=== PATIENT | female | born 1990 | race Caucasian/White ===

== ENCOUNTER 2024-03-01 17:27 | Outpatient (CLI) | payer OTHER, SELFPAY ==
--- OUTSIDE RECORDS SUMMARY | 2024-03-01 18:11 | XMS_ITS | Clinical Summary ---
Author Organization [facility] Address [place], [place] [address] Care Team Providers Care Superintendent Compressor Stations Name Role Phone Jonelle Morris MD Unavailable [phone] Luz Macias NP Unavailable Renetta Cross Primary Care Provider [phone] Allergies Active Allergy Reactions Criticality Noted Date Comments Hydrocodone Bitartrate Anaphylaxis High 05/05/2022 Hydrocodone-Acetaminophen Anaphylaxis 2 Vs amoxicillin as etiology. T#3 ok. Medications Medication Sig Dispensed Refills Start Date End Date Status calcium carbonate (Tums) 200 mg calcium (500 mg) chewable tablet Chew by mouth. 05/05/2022 Active fluticasone (50 mcg per actuation) nasal solution (FLONASE)Indications:H ayfever Inhale 2 Sprays to both nostrils two times daily. 48 g 1 10/28/2023 Active albuterol HFA (PRO-AIR; VENTOLIN; PROVENTIL) 90 mcg/actuation inhalerIndications:Mil d intermittent asthma without complication Inhale 2 Puffs by mouth every 4 hours if needed for Shortness Of Breath or Wheezing. 1 Each 5 01/04/2024 Active medroxyPROGESTERone (Provera) 10 mg tabletIndications:PCOS (polycystic ovarian syndrome) take 1 tablet (10 mg) by oral route once daily for 10 days as directed every 3 months without menses. 30 Tablet 5 01/04/2024 Active levothyroxine (SYNTHROID) 200 mcg tabletIndications:Acqu ired hypothyroidism Take 1 Tablet (200 mcg) by mouth before breakfast. 90 Tablet 3 01/06/2024 Active Active Problems Problem Noted Date Diagnosed Date Iron deficiency anemia 11/25/2021 distress affecting care 08/12/2019 S/P emergency 08/12/2019 Screening for condition--covid, asymptomatic, lo w risk 08/10/2019 Supervision of high risk , antepartum 0 08/01/2019 Gestational hypertension, third trimester 2019 Supervision of normal first 12/20/2018 Celiac disease 07/21/2017 Overview (07/21/2017): EGD 06/2017 celiac disease, Esposito 2 VESTA 03/26/2017 AHI/RDI:15 04/14/2017 VESTA (obstructive sleep apnea) 02/27/2017 Acquired hypothyroidism 03/08/2015 Nevus 10/25/2014 Screening exam for skin cancer 10/25/2014 S/P cholecystectomy 05/10/2014 Obesity 04/24/2014 Dyshidrotic hand dermatitis 04/29/2013 Fatty liver 01/08/2012 Hypothyroidism 01/08/2012 Vitamin D deficiency 01/08/2012 Anovulatory amenorrhea 03/11/2011 Mixed hyperlipidemia 02/13/2009 PCOS (polycystic ovarian syndrome) 12/26/2008 Mild intermittent asthma 06/10/2006 Anemia Estimated Date of Delivery Comme nts Yes 10/14/2024 Based on last me nstrual period of 01/08/2024 (Exact Date), Irregular periods- PCOS- very light cycle which was very unusual Resolved Problems Problem Noted Date Diagnosed Date Resolved Date Mixed hyperlipidemia 02/13/2009 009 Encounters Date Type Department Care Team Description 02/21/2024 Travel 02/20/2024 7:10 PM PARAMEDIC SUPERVISOR - 02/20/2024 10:23 PM PARAMEDIC SUPERVISOR Emergency [facility] [address] [facility] [place] [id number] Demetria Pedro PA Intrauterine (Primary Dx); Abdominal cramping; Elevated blood pressure affecting in first trimester, antepartum Discharge Disposition: Home Self Care 02/20/2024 Travel 02/20/2024 Nurse Triage [facility] [address] [place] [address] Renetta Cross PA Abdominal Pain; Urinary Problem 02/19/2024 2:20 PM PARAMEDIC SUPERVISOR OB Encounter [facility] [address] [place] [address] Education (RN OB intake) 02/19/2024 Travel 01/28/2024 11:30 AM CDT Office Visit [facility] [address] [place] [address] Britt Hilario PA Gi Problem 01/28/2024 Travel 01/15/2024 1:25 PM CDT Office Visit [facility] [address] [place] [phone] Eduardo Humphries PA Ear Problem (Onset: 01/09/24) 01/15/2024 Travel 01/04/2024 9:10 AM CDT Office Visit [facility] [address] [place] [address] Renetta Cross PA Establish Care (Just needs new provider to manage meds) 01/03/2024 Travel 12/21/2023 12:10 PM CDT Office Visit [facility] [address] [place] [phone] Aundrea Mccracken, [place] Bladder Infection (pressure) 12/21/2023 Travel from Last 3 Months Immunizations Name Administration Dates Next Due AMB INFLUENZA, IIV4 (AGE=>6M OS) MDV (Flu Clinic Only) 12/14/2018 AMB Influenza, IIV4 PF (=>6 mos Flulaval,Fluzone Fluarix)(Flu Clinic Only) 12/09/2018 COVID-19 VACCINE SPIKEVAX (M ODERNA 50MCG/0.5ML) 12YO+ PFS 04/06/2023 COVID-19 vaccine (Graphenics-Bio NTech 30mcg/0.3mL) 12YO+ BIVALENT PF, MDV 02/17/2022 COVID-19 vaccine (Pfizer-Bio NTech 30mcg/0.3mL) PF, MDV 06/27/2020,06/06/2020 Human Papilloma Virus Vaccine 02/11/2013, 012,02/13/2009 Influenza A (H1N1), Inactivated 02/14/2009 Influenza, IIV3 (Age >=3 years) 02/11/2013,12/30 Influenza, IIV4 04/06/2023, 2,03/04/2021,2019,02/24/2018,02/03/2017,12/20/2015,1 05/09/2014,01/31/2014 Influenza,CCIIV4 PRESERV FREE 12/14/2018 Pneumococcal Conj 20-valent (Prevnar 20) 04/06/2023 Pneumococcal Poly,23-Valent (Pneumovax) 02/13/2009 Tdap 06/06/2019,12/31/2011 Family History Medical History Relation Name Comments Diabetes Father Type 1 Thyroid Disease Father Uterine cancer Maternal Aunt Cancer-colon Maternal Grandfather Anxiety disorder Maternal Grandmother Asthma Maternal Grandmother COPD Maternal Grandmother Lung cancer Maternal Grandmother Lung cancer Maternal Uncle No Known Problems Mother Celiac disease Paternal Aunt Alcohol/Drug Paternal Grandfather Lung cancer Paternal Grandfather Cancer-breast Paternal Grandmother Good Health Son Relation Name Status Comments Father Alive Maternal Aunt Alive Maternal Grandfather Maternal Grandmother Alive Maternal Uncle Mother Alive Paternal Aunt Alive Paternal Grandfather Paternal Grandmother Son Alive Social History Tobacco Use Types Packs/Day Years Used Date Smoking Tobacco: Never Smokeless Tobacco: Never Tobacco Cessation:Counseling Given: Yes Alcohol Use Standard Drinks/Week Comments Never 0 (1 standard drink = 0.6 oz pur e alcohol) Humiliation, Afraid, Rape, and Kick questionnair e Answer Date Recorded Fear of Current or Ex-Partner No Emotionally Abused No 12/20/2018 Physically Abused No 12/20/2018 Sexually Abused No 12/20/2018 PHQ-2 Answer Date Recorded PHQ-2 TOTAL SCORE 0 04/20/2023 [facility] - Occupational Stress Questionnaire Answer Date Recorded Feeling of Stress Not at all 12/20/2018 Exercise Vital Sign Answer Date Recorde d Days of Exercise per Week 5 days 2018 Minutes of Exercise per Session 90 min 12/20/2018 Social Connections Answer Date Recorded Do you often feel lonely or isolated from those around you? 0 01/03/2024 Financial Resource Strain Answer Date R ecorded Difficulty of Paying Living Expenses 3 01/03/2024 Difficulty of Paying Living Expenses Not on file 01/03/2024 Food Insecurity Answer Date Recorded Do you worry your food will run out before you are able to buy more? 1 01/03/2024 Transportation Needs Answer Date Record ed Does lack of transportation keep you from medica l appointments? 1 01/03/2024 Does lack of transportation keep you from work, meetings or getting things that you need? 1 01/03/2024 Housing Stability Answer Date Recorded What is your housing situation today? 1 01/03/2024 Education Answer Date Recorded What is the highest level of school you have completed or the highest degree you have received? Associate degree: academic program 12/20/2018 Estimated Date of Delivery Comme nts Yes 10/14/2024 Based on last me nstrual period of 01/08/2024 (Exact Date), Irregular periods- PCOS- very light cycle which was very unusual Sex and Gender Information Value Date Recorded Sex Assigned at Not on file Gender Identity Not on file Sexual Orientation Not on file Obstetrics History Para Term AB IAB SAB Ectopic Multiple Livin g Live Births 3 1 1 1 1 1 1 Date Outcome GA Total Labor Labor/2nd/3rd Weight Sex Type Anes PTL No A1 A5 Name Clin 2019 Term 37w 3d 0h 01m 3.91 kg (8 lb 10 oz) M CS-LT ranv Genera l N Livin g LORETTA CABRALES,DEEDEE nova Complications: Intolera nce,Failure to Progress in Second Stage,Dysfunctional Labor,Sinusoidal pattern of baseline heart rate Delivery Location:[facility] 3 SAB Current Summary Episode Dates Number of Fetuses Estimated Date of Delivery 02/19/2024 - Present (03/01/2024) 10/14/2024 (set by Marisol Seals, RN on 02/19/2024 based on Last Menstrual Period on 01/08/2024 (Exact Date)) Dating Summary Based On YUSEF GA Diff Last Menstrual Period on 01/08/2024 (Exact Date) 10/14/2024 Working Comment:Irregular periods- P COS- very light cycle which was very unusual Vitals Pregravid Weight Height TWG (As of 03/01/2024) Pregrav id BMI 1.549 m (5' 1) Date GA Fund Present FHR Mvmt BP Weight Edema Alb Glu Ket Dil/ Eff/Sta 4 6w1d Inpatient data not displayed here. See encounter summary. Notes Progress Notes - OB Encounte r - 02/19/2024 - GA:6w0d 02/19/2024 - 6w0d - Marisol Seals RN SUBJECTIVE: Mandi Walter is a 33 y.o. female, , who presents for confirmation and ob education. Patient presents to the clinic alone. Had positive test at home. This was Planned, Desired. Patient was not on contraception. Date Reliability: definite YUSEF based on LMP: Estimated Date of Delivery: 10/14/24 Current symptoms include: Nausea:Yes Vomiting:No Breast tenderness:Yes - mild Vaginal bleeding:No Vaginal discharge:No Pelvic cramping:Yes - mild Fatigue:Yes Previous Delivery Type: Occupation of patient: general engineering teacher Name of Partner or Father of baby: Shimon. MENSTRUAL HISTORY: Patient's last menstrual period was 01/08/2024 (exact date).: Cycle Regularity: irregular - last period was unusually light Past Medical History: . Date Anemia Awareness under anesthesia Gastritis 02/03/2022 GBS (group B Streptococcus carrier), +RV culture, currently Hemorrhoids 02/03/2022 Hx of preeclampsia, prior , currently Hypothyroidism 2008 Infertility, female Migraine headache Mild intermittent asthma rare, no hospitalizations Mixed hyperlipidemia 2008 Morbid obesity with BMI of 40.0-44.9, adult (HC) seen by Dr. Jean 03/2019 for VESTA (obstructive sleep apnea) 02/2017 PCOS (polycystic ovarian syndrome) Prior complicated by PIH, antepartum, unspecified trimester Varicella in childhood OB History Para Term AB Living 3 1 1 1 1 SAB IAB Ectopic Multiple Live Births 1 1 # Outcome Date GA Lbr Betito/2nd Weight Sex Type Anes PTL Lv 3 Current 2 SAB 12/2022 1 Term 08/11/19 37w3d 3.91 kg (8 lb 10 oz) M CS-LTranv GENERAL N NO Complications: Intolerance, Failure to Progress in Second Stage, Dysfunctional Labor, Sinusoidal pattern of baseline heart rate 5P'S SUBSTANCE ABUSE SCREEN FOR ALCOHOL, DRUGS AND TOBACCO: Did any of your parents have a problem with using alcohol or drugs? No Do any of your friends (peers) have problems with drug or alcohol use? No Does your partner have a problem with drug or alcohol use? No Before you knew you were , how often did you drink beer, wine, wine coolers or liquor or use any kind of drug? Not at all In the past month, how often did you drink beer, wine, wine coolers or liquor or use any kind of drug? Not at all How much did you smoke, vape or use tobacco or nicotine in any form before you knew you were ? Don't Smoke, Vape or use Tobacco Genetic Screening Genetic Screening/Teratology Counseling- Includes patient, baby's father, or anyone in either family with: Patient's age 35 years or older as of estimated date of delivery: Yes Thalassemia (Occitan, Bengali, Mediterranean, or background): MCV less than 80: No Neural tube defect (Meningomyelocele, Spina bifida, or Anencephaly): No Congenital heart defect: No Down syndrome: No Scotty-Sachs (Ashkenazi Temple, Cajun, Citizen Of [place]): No Abiola disease (Ashkenazi Temple): No Familial dysautonomia (Ashkenazi Temple): No Sickle cell disease or trait (): No Hemophilia or other blood disorders: No Muscular dystrophy: No Cystic fibrosis: No Lowndes's chorea: No Intellectual disability and/or autism: No Other inherited genetic or chromosomal disorder: No Maternal metabolic disorder (eg. Type 1 diabetes, PKU): Yes (Comment: maternal father) Patient or baby's father had child with defects not listed above: No Recurrent loss, or a stillbirth: No Medications (including supplements, vitamins, herbs, or OTC drugs)/illicit/recreational drugs/alcohol since last menstrual period: Yes If yes, agent(s) and strength/dosage: prednisone and amoxicillin CURRENT MEDICATIONS: Current Outpatient Medications Medication Sig albuterol HFA (PRO-AIR; VENTOLIN; PROVENTIL) 90 mcg/actuation inhaler Inhale 2 Puffs by mouth every 4 hours if needed for Shortness Of Breath or Wheezing. calcium carbonate (Tums) 200 mg calcium (500 mg) chewable tablet Chew by mouth. fluticasone (50 mcg per actuation) nasal solution (FLONASE) Inhale 2 Sprays to both nostrils two times daily. levothyroxine (SYNTHROID) 200 mcg tablet Take 1 Tablet (200 mcg) by mouth before breakfast. medroxyPROGESTERone (Provera) 10 mg tablet take 1 tablet (10 mg) by oral route once daily for 10 days as directed every 3 months without menses. No current facility-administered medications for this visit. Medications have been reviewed by me and are current to the best of my knowledge and ability. ALLERGIES: Hydrocodone bitartrate and Vicodin [hydrocodone-acetaminophen] OBJECTIVE: LMP 01/08/2024 (Exact Date) Comment: Irregular periods- PCOS- very light cycle which was very unusual ,URINE (no units) Date Value 12/21/2023 Negative ASSESSMENT/PLAN: No diagnosis found. EDUCATION/PATIENT INSTRUCTIONS - Advised patient to start/continue vitamin. - Discussed risk of using alcohol, tobacco, other drugs in . - Discussed healthy lifestyle in . - Provided copy of [facility]nings book and book inserts, discussed [id number] medications, and follow up. - Encouraged patient to call clinic at [phone] with any vaginal bleeding, fluid leaking from vagina, severe abdominal pain, nausea with severe vomiting, fever higher than 100.4F, painful urination, headache not relieved by Tylenol, or other concerns - labs completed with today's visit. - Patient informed to schedule 1st trimester dating ultrasound between 7-10 weeks. - Initial OB appointment with FP/OB scheduled. PHQ-9, and COVID-19 vaccine discussion to be completed at this visit. Future Appointments Date Time Provider Department Center 03/07/2024 1:10 PM Ren[facility] Cross [facility] 03/28/2024 8:45 AM Jenna Fountain MD [facility] Marisol Seals RN .................... 02/19/2024 3:14 PM MEDIC SUPERVISOR Last Filed Vital Signs Vital Sign Reading Time Taken Comments Blood Pressure 157/88 02/20/2024 9:32 PM PARAMEDIC SUPERVISOR Pulse 86 02/20/2024 9:32 PM PARAMEDIC SUPERVISOR Temperature 36.8 C (98.2 F) 02/20/2024 7:16 PM PARAMEDIC SUPERVISOR Respiratory Rate 22 02/20/2024 7:16 PM PARAMEDIC SUPERVISOR Oxygen Saturation 100% 02/20/2024 9:32 PM PARAMEDIC SUPERVISOR Inhaled Oxygen Concentration - - Weight 128.8 kg (284 lb) 02/20/2024 7:16 PM PARAMEDIC SUPERVISOR Height 154.9 cm (5' 1) 02/20/2024 7:16 PM PARAMEDIC SUPERVISOR Body Mass Index 53.66 02/20/2024 7:16 PM PARAMEDIC SUPERVISOR Plan of Treatment Health Maintenance Due Date Last Done Comments COVID-19 vaccine series ( season) 2023 04/06/2023, 02/17/2022, 01/07/2021, Additional history exists Influenza for age 9-49 11/29/2023 , 02/17/2022, 03/04/2021, Additional history exists BMI (ht and wt on same day) for age 18+ 04/06/2024 04/06/2023, 10/21/2021, 08/13/2020, Additional history exists Depression screening for age 12+ 04/20/2024 04/20/2023, 04/07/2023, 04/06/2023, Additional history exists Pap test for age 21-65 08/13/2025 , 08/13/2020, 02/24/2018 Tetanus booster 06/05/2029 06/06/2019, 12/31/2011 Tdap Completed 06/06/2019, 12/31/2011 Pneumococcal series for age 6-64 Aged Out 04/06/2023, 02/13/2009 No longer eligibl e based on patient's age to complete this topic HIV for age 15-65 Completed 02/19/2024, , 09/08/2017 Hepatitis C screening for age 18-79 Completed 02/19/2024, 12/23/2018, 09/08/2017 RSV vaccine for adults or (No Doses Required) Completed Procedures Procedure Name Priority Date/Time Associated Diagnosis Comments US OB 1ST TRI SINGLE TA AND TV STAT 02/20/2024 10:08 PM PARAMEDIC SUPERVISOR UA W/ SEDIMENT EXAM REFLEXED PER CRITERIA STAT 02/20/2024 7:30 PM PARAMEDIC SUPERVISOR HCG BETA QUANT, STAT 02/20/2024 7:23 PM PARAMEDIC SUPERVISOR PROTEIN/CREAT RATIO,URINE Routine 02/19/2024 4:05 PM PARAMEDIC SUPERVISOR Hx of preeclampsia, prior , currently AST (SGOT) Routine 02/19/2024 4:05 PM PARAMEDIC SUPERVISOR Encounter for supervision of other normal in first trimester Hx of preeclampsia, prior , currently ALT (SGPT) Routine 02/19/2024 4:05 PM PARAMEDIC SUPERVISOR Encounter for supervision of other normal in first trimester Hx of preeclampsia, prior , currently UA W/ SEDIMENT EXAM REFLEXED PER CRITERIA Routine 02/19/2024 4:05 PM PARAMEDIC SUPERVISOR Encounter for supervision of other normal in first trimester Hx of preeclampsia, prior , currently HIV 1/2 ANTIGEN/ANTIBODY FOURTH GENERATION W/RFL (QUEST) Routine 02/19/2024 4:05 PM PARAMEDIC SUPERVISOR Encounter for supervision of other normal in first trimester Hx of preeclampsia, prior , currently ANTI HCV Routine 02/19/2024 4:05 PM PARAMEDIC SUPERVISOR Encounter for supervision of other normal in first trimester Hx of preeclampsia, prior , currently HBSAG (HBS) Routine 02/19/2024 4:05 PM PARAMEDIC SUPERVISOR Encounter for supervision of other normal in first trimester Hx of preeclampsia, prior , currently RUBELLA IMMUNE STATUS Routine 02/19/2024 4:05 PM PARAMEDIC SUPERVISOR Encounter for supervision of other normal in first trimester Hx of preeclampsia, prior , currently URINE CULTURE Routine 02/19/2024 4:05 PM PARAMEDIC SUPERVISOR Encounter for supervision of other normal in first trimester Hx of preeclampsia, prior , currently CBC W PLT NO DIFF Routine 02/19/2024 4:0 5 PM PARAMEDIC SUPERVISOR Encounter for supervision of other normal in first trimester Hx of preeclampsia, prior , currently TSH Routine 02/19/2024 4:05 PM PARAMEDIC SUPERVISOR Acquired hypothyroidism TYPE & SCREEN Routine 02/19/2024 4:04 PM PARAMEDIC SUPERVISOR Encounter for supervision of other normal in first trimester Hx of preeclampsia, prior , currently GC CHLAMYDIA TRACH PROBE Routine 02/19/2024 4:04 PM PARAMEDIC SUPERVISOR Encounter for supervision of other normal in first trimester Hx of preeclampsia, prior , currently TREPONEMA PALLIDUM Routine 02/19/2024 4: 04 PM PARAMEDIC SUPERVISOR Encounter for supervision of other normal in first trimester Hx of preeclampsia, prior , currently C-REACTIVE PROTEIN Routine 01/28/2024 10 :38 AM CDT Abdominal pain, epigastric Autoimmune gastritis SEDIMENTATION RATE Routine 01/28/2024 10 :38 AM CDT Abdominal pain, epigastric Autoimmune gastritis LIPASE Routine 01/28/2024 10:38 AM CDT Abdominal pain, epigastric Autoimmune gastritis COMP METABOLIC PANEL Routine 01/28/2024 10:38 AM CDT Abdominal pain, epigastric Autoimmune gastritis CBC WITH AUTO DIFFERENTIAL Routine 01/28/2024 10:38 AM CDT Abdominal pain, epigastric Autoimmune gastritis CBC WITH AUTO DIFFERENTIAL Routine 01/04/2024 9:57 AM CDT FERRITIN Routine 01/04/2024 9:57 AM CDT Other iron deficiency anemia IRON PLUS IRON BINDING CAP Routine 01/04/2024 9:57 AM CDT Other iron deficiency anemia TSH Routine 01/04/2024 9:57 AM CDT Acquired hypothyroidism CBC WITH AUTO DIFFERENTIAL STAT 12/21/2023 2:22 PM CDT UTI symptoms BASIC METABOLIC PANEL STAT 12/21/2023 2:22 PM CDT UTI symptoms CBC WITH AUTO DIFFERENTIAL STAT 12/21/2023 2:22 PM CDT UTI symptoms TRICHOMONAS, LISA, AND BACTERIAL VAGINOSIS BY NALLLEY Routine 12/21/2023 2:08 PM CDT UTI symptoms URINE CULTURE ERICA 12/21/2023 12:53 PM CDT UTI symptoms URINE STAT 12/21/2023 12:53 PM CDT Amenorrhea UA W/ SEDIMENT EXAM REFLEXED PER CRITERIA STAT 12/21/2023 12:53 PM CDT UTI symptoms SHOP ASSISTANT THIN PREP PAP SCREEN IMAGED Routine 08/13/2020 9:00 AM CDT Cervical cancer screening from Last 3 Months or Most Recently Relevant to Health Maintenance Results * US OB 1ST TRI SINGLE TA AND TV (02/20/2024 10:08 PM PARAMEDIC SUPERVISOR) Anatomical Region Laterality Modality Ultrasound 02/20/2024 10:1 4 PM PARAMEDIC SUPERVISOR Impressions 02/20/2024 10:14 PM PARAMEDIC SUPERVISOR 1. Single viable intrauterine with an estimated gestational age of 12 weeks, 2 days. 2. The anterior myometrium is prominent in appearance which may be due to a fibroid or contraction. Follow-up imaging may be helpful. Dictated by Jozef Perez MD @ 02/20/2024 10:12:02 PM Dictated by: Jozef Perez MD @ 02/20/2024 22:14:46 (Electronically Signed) Narrative 02/20/2024 10:14 PM PARAMEDIC SUPERVISOR For Patients: As a result of the Cures Act, medical imaging exams and procedure reports are released immediately into your electronic medical record. You may view this report before your referring provider. If you have questions, please contact your health care provider. INDICATION: Pelvic pain TECHNIQUE: Ultrasound OB pelvis transabdominal and transvaginal. Real time johnson scale imaging of the pelvis was performed. COMPARISON: None FINDINGS: Gestational sac: Sonographic imaging demonstrates a single intrauterine gestation with a normal appearance. No evidence of a perigestational hemorrhage is seen. The amount of fluid within the sac appears appropriate for gestational age. Fetus: The embryo demonstrates a regular cardiac rate measuring 167 beats per minute. The embryo`s crown rump length measurement of 57 mm corresponds to a gestational age of 12 weeks, 2 days. There are no gross abnormalities noted within the embryo at this early state of development. There is a normal appearing yolk sac. Placenta: The placenta has not yet developed. Pelvis: The visualized cervix is a small amount of endocervical fluid. The internal os is not well demonstrated. The anterior myometrium appears thickened and globular in appearance which may be due to a fibroid or Rehan Eubanks contraction. The ovaries are not visualized. No significant ascites noted. Procedure Note Jozef Perez MD - 02/20/2024 For Patients: As a result of the Cures Act, medical imagingexams and procedure reports are released immediately into your electronicmedical record. You may view this report before your referring provider.If you have questions, please contact your health care provider. INDICATION: Pelvic pain TECHNIQUE: Ultrasound OB pelvis transabdominal and transvaginal. Real time johnson scaleimaging of the pelvis was performed. COMPARISON: None FINDINGS: Gestational sac: Sonographic imaging demonstrates a single intrauterinegestation with a normal appearance. No evidence of a perigestationalhemorrhage is seen. The amount of fluid within the sac appears appropriatefor gestational age. Fetus: The embryo demonstrates a regular cardiac rate measuring 167 beatsper minute. The embryo`s crown rump length measurement of 57 mmcorresponds to a gestational age of 12 weeks, 2 days. There are no grossabnormalities noted within the embryo at this early state of development.There is a normal appearing yolk sac. Placenta: The placenta has not yet developed. Pelvis: The visualized cervix is a small amount of endocervical fluid. Theinternal os is not well demonstrated. The anterior myometrium appearsthickened and globular in appearance which may be due to a fibroid orBraxton Eubanks contraction. The ovaries are not visualized. No significantascites noted. IMPRESSION: 1. Single viable intrauterine with an estimated gestational ageof 12 weeks, 2 days. 2. The anterior myometrium is prominent in appearance which may be due toa fibroid or contraction. Follow-up imaging may be helpful. Dictated by Jozef Perez MD @ 02/20/2024 10:12:02 PM Dictated by: Jozef Perez MD @ 02/20/2024 22:14:46 (Electronically Signed) Demetria PARKER US * (ABNORMAL) UA W/ SEDIMENT EXAM REFLEXED PER CRITERIA (02/20/2024 7:30 PM PARAMEDIC SUPERVISOR) Only the most recent of3 resultswithin the time period is included. COLOR Yellow Yellow Color 02/20/2024 7:36 PM [facility] CLARITY Clear Clear Clarity 02/20/2024 7:36 PM [facility] [facility] SPECIFIC GRAVITY,URINE 1.010 1.010, 1.015, 1.020, 1.025 02/20/2024 7:36 PM [facility] PH,URINE 6.0 6.0, 7.0, 8.0, 5.5, 6.5, 7.5, 8.5 02/20/2024 7:36 PM [facility] UROBILINOGEN, QUALITATIVE Normal Normal EU/dl 02/20/2024 7:36 PM [facility] PROTEIN, URINE Negative Negative mg/dL 02/20/2024 7:36 PM [facility] GLUCOSE, URINE Negative Negative mg/dL 02/20/2024 7:36 PM [facility] KETONES,URINE Trace(A) Negative mg/dL 02/20/2024 7:36 PM [facility] BILIRUBIN,URI NE Negative Negative 02/20/2024 7:36 PM [facility] OCCULT BLOOD,URINE Negative Negative 02/20/2024 7:36 PM PARAMEDIC SUPERVISOR [facility] NITRITE Negative Negative 02/20/2024 7:36 PM PARAMEDIC SUPERVISOR [facility] LEUKOCYTE ESTERASE Negative Negative 02/20/2024 7:36 PM PARAMEDIC SUPERVISOR [facility] Urine URINE SPECIMEN / Unknown Non-Blood / Unknown 02/20/2024 7:30 PM PARAMEDIC SUPERVISOR 02/20/2024 7:33 PM PARAMEDIC SUPERVISOR Demetria PARKER URINE [facility] [address] [place] [address] * HCG BETA QUANT, (02/20/2024 7:23 PM PARAMEDIC SUPERVISOR) HCG BETA QUANT,PREGNANC Y 60,419 mIU/mL 02/20/2024 8:16 PM PARAMEDIC SUPERVISOR [facility] Blood BLOOD SPECIMEN / Unknown Venipuncture / Unknown 02/20/2024 7:23 PM PARAMEDIC SUPERVISOR 02/20/2024 7:25 PM PARAMEDIC SUPERVISOR Narrative [facility] - 02/20/2024 8:16 PM PARAMEDIC SUPERVISOR Expected Value for Healthy Non- premenopausal women <5.3mIU/mL FOR GESTATIONAL ASSESSMENT-See Range Table Below Weeks of gestation hCG mIU/mL 3 weeks gestation (5.8 - 71.2) 4 weeks gestation (9.5 - 750) 5 weeks gestation (217 - 7138) 6 weeks gestation (158 - 31,795) 7 weeks gestation (3,697 - 163,563) 8 weeks gestation (32,065 - 149,571) 9 weeks gestation (63,803 - 151,410) 10 weeks gestation (46,509 - 186,977) 12 weeks gestation (27,832 - 210,612) 14 weeks gestation (13,950 - 62,530) 15 weeks gestation (12,039 - 70,971) 16 weeks gestation (9,040 - 56,451) 17 weeks gestation (8,175 - 55,868) 18 weeks gestation (8,099 - 58,176) Biotin supplements may cause clinically significant interference for this test assay. If interference is suspected, it is strongly recommended that biotin is discontinued for at least one week prior to retesting. Demetria PARKER CHEMISTRY Performing Organization Address [facility]/ZIP Co de Phone Number [facility] [address] [place] [address] * HIV 1/2 ANTIGEN/ANTIBODY FOURTH GENERATION W/RFL ([facility]) (02/19/2024 4:05 PM PARAMEDIC SUPERVISOR) HIV AG/AB, 4TH GEN NON-REACT RHONDA NON-REACT RHONDA [facility] [place] Comment: HIV-1 antigen and HIV-1/HIV-2 antibodies were not detected. There is no laboratory evidence of HIV infection. PLEASE NOTE: This information has been disclosed to you from records whose confidentiality may be protected by state law. If your state requires such protection, then the state law prohibits you from making any further disclosure of the information without the specific written consent of the person to whom it pertains, or as otherwise permitted by law. A general authorization for the release of medical or other information is NOT sufficient for this purpose. For additional information please refer to http://education.[employer]/faq/BVI792 (This link is being provided for informational/ educational purposes only.) The performance of this assay has not been clinically validated in patients less than 2 years old. Blood BLOOD SPECIMEN / Unknown 02/19/2024 4:05 PM PARAMEDIC SUPERVISOR 02/19/2024 4:06 PM PARAMEDIC SUPERVISOR Jenna Fountain MD SEND OUTS Performing Organization Address City/[facility]/ZIP Co de Phone Number [facility] [address] [place] [address], [facility] [address] [place] [address] * (ABNORMAL) TSH (02/19/2024 4:05 PM PARAMEDIC SUPERVISOR) Only the most recent of2 resultswithin the time period is included. TSH 8.23(H) mIU/L [facility] Comment: Reference Range > or = 20 Years 0.40-4.50 Ranges First trimester 0.26-2.66 Second trimester 0.55-2.73 Third trimester 0.43-2.91 Blood BLOOD SPECIMEN / Unknown 02/19/2024 4:05 PM PARAMEDIC SUPERVISOR 02/19/2024 4:06 PM PARAMEDIC SUPERVISOR Renetta PARKER CHEMISTRY Performing Organization Address [facility]/ZIP Co de Phone Number [facility] [address] [place] [address], [place] [phone] [facility] [address] [place] [address] * RUBELLA IMMUNE STATUS (02/19/2024 4:05 PM PARAMEDIC SUPERVISOR) RUBELLA AB (IGG), IMMUNE STATUS 2.55 Index [facility] Comment: Index Interpretation ----- <0.90 Not consistent with immunity 0.90-0.99 Equivocal > or = 1.00 Consistent with immunity The presence of rubella IgG antibody suggests immunization or past or current infection with rubella virus. Blood BLOOD SPECIMEN / Unknown 02/19/2024 4:05 PM PARAMEDIC SUPERVISOR 02/19/2024 4:06 PM PARAMEDIC SUPERVISOR Jenna Fountain MD SEND OUTS Performing Organization Address [facility]/ZIP Co de Phone Number [facility] [address] [place] [address], [facility] [address] [place] [address] * PROTEIN/CREAT RATIO,URINE (02/19/2024 4:05 PM PARAMEDIC SUPERVISOR) CREATININE, RANDOM URINE 217 20 - 275 mg/dL [facility] [place] PROTEIN/CREATIN INE RATIO MG/G 65 24 - 184 mg/g creat [facility] PROTEIN/CREATIN INE RATIO MG/MG 0.065 0.024 - 0.184 mg/mg creat [facility] PROTEIN, TOTAL, RANDOM UR 14 5 - 24 mg/dL [facility] Urine URINE SPECIMEN / Unknown 02/19/2024 4:05 PM PARAMEDIC SUPERVISOR 02/19/2024 4:06 PM PARAMEDIC SUPERVISOR Jenna Fountain MD URINE Performing Organization Address [facility] de Phone Number [facility] [address] [place] [address], [facility] [address] [place] [address] * HBSAG (HBS) (02/19/2024 4:05 PM PARAMEDIC SUPERVISOR) HEPATITIS B SURFACE ANTIGEN NON-REACTI VE NON-REACTI VE [facility] [place] Comment: For additional information, please refer to http://education.[employer]/faq/LEL464 (This link is being provided for informational/ educational purposes only.) Blood BLOOD SPECIMEN / Unknown 02/19/2024 4:05 PM PARAMEDIC SUPERVISOR 02/19/2024 4:06 PM PARAMEDIC SUPERVISOR Jenan Fountain MD SEND OUTS Performing Organization Address [facility] Co de Phone Number [facility] [address] [place] [address], [facility] [address] [place] [address] * URINE CULTURE (02/19/2024 4:05 PM PARAMEDIC SUPERVISOR) Only the most recent of2 resultswithin the time period is included. CULTURE, URINE, ROUTINE SEE NOTE [facility] Comment: CULTURE, URINE, ROUTINE Micro Number: [id number] Test Status: Final Specimen Source: Urine Specimen Quality: Adequate Result: Mixed genital carmenza isolated. These superficial bacteria are not indicative of a urinary tract infection. No further organism identification is warranted on this specimen. If clinically indicated, recollect clean-catch, mid-stream urine and transfer immediately to Urine Culture Transport Tube. Urine URINE SPECIMEN / Unknown 02/19/2024 4:05 PM PARAMEDIC SUPERVISOR 02/19/2024 4:06 PM PARAMEDIC SUPERVISOR Jenna Fountain MD MICROBIOLOGY Performing Organization Address [facility] Co de Phone Number [facility] [address] [place] [address], [place] [phone] [facility] [address] [place] [address] * ANTI HCV (02/19/2024 4:05 PM PARAMEDIC SUPERVISOR) Pathologist [facility] HEPATITIS C ANTIBODY NON-REACTI VE NON-REACT RHONDA [facility] Comment: HCV antibody was non-reactive. There is no laboratory evidence of HCV infection. In most cases, no further action is required. However, if recent HCV exposure is suspected, a test for HCV RNA (test code 27342) is suggested. For additional information please refer to http://education.[employer]/faq/SOJ40e3 (This link is being provided for informational/ educational purposes only.) Blood BLOOD SPECIMEN / Unknown 02/19/2024 4:05 PM PARAMEDIC SUPERVISOR 02/19/2024 4:06 PM PARAMEDIC SUPERVISOR Jenna Fountain MD SEND OUTS Performing Organization Address [facility]/ZIP Co de Phone Number [facility] [address] [place] [address], [place] [phone] [facility] [address] [place] [address] * (ABNORMAL) CBC W PLT NO DIFF (02/19/2024 4:05 PM PARAMEDIC SUPERVISOR) Pathologist [facility] WHITE BLOOD CELL COUNT 6.2 3.8 - 10.8 Thousand/u L [facility] RED BLOOD CELL COUNT 4.75 3.80 - 5.10 Million/uL [facility] HEMOGLOBIN 12.6 11.7 - 15.5 g/dL [facility] HEMATOCRIT 37.9 35.0 - 45.0 % [facility] MCV 79.8(L) 80.0 - 100.0 fL [facility] MCH 26.5(L) 27.0 - 33.0 pg [facility] MCHC 33.2 32.0 - 36.0 g/dL [facility] Comment: For adults, a slight decrease in the calculated MCHC value (in the range of 30 to 32 g/dL) is most likely not clinically significant; however, it should be interpreted with caution in correlation with other red cell parameters and the patient's clinical condition. RDW 15.9(H) 11.0 - 15.0 % [facility] PLATELET COUNT 244 140 - 400 Thousand/u L [facility] MPV 12.9(H) 7.5 - 12.5 fL [facility] Blood BLOOD SPECIMEN / Unknown 02/19/2024 4:05 PM PARAMEDIC SUPERVISOR 02/19/2024 4:06 PM PARAMEDIC SUPERVISOR Jenna Fountain MD HEMATOLOGY Performing Organization Address [facility] Co de Phone Number [facility] [employer] [facility] [address] [place] [address], [facility] [address] [place] [address] * (ABNORMAL) ALT (SGPT) [16592.0] (02/19/2024 4:05 PM PARAMEDIC SUPERVISOR) ALT 36(H) 6 - 29 U/L [facility] Blood BLOOD SPECIMEN / Unknown 02/19/2024 4:05 PM PARAMEDIC SUPERVISOR 02/19/2024 4:06 PM PARAMEDIC SUPERVISOR Jenna Fountain MD CHEMISTRY Performing Organization Address [facility]/ZIP Co de Phone Number [facility] [address] [place] [address], [place] [phone] [facility] [address] [place] [address] * AST (SGOT) [37995.0] (02/19/2024 4:05 PM PARAMEDIC SUPERVISOR) AST 29 10 - 30 U/L [facility] Blood BLOOD SPECIMEN / Unknown 02/19/2024 4:05 PM PARAMEDIC SUPERVISOR 02/19/2024 4:06 PM PARAMEDIC SUPERVISOR Jenna Fountain MD CHEMISTRY [facility] [address] [place] [address], [facility] [address] [place] [address] * TREPONEMA PALLIDUM (02/19/2024 4:04 PM PARAMEDIC SUPERVISOR) TREPONEMA PALLIDUM Non-Reacti ve Non-Reacti ve 02/19/2024 11:12 PM PARAMEDIC SUPERVISOR [facility] Blood BLOOD SPECIMEN / Unknown [facility] / Unknown 02/19/2024 4:04 PM PARAMEDIC SUPERVISOR 02/19/2024 4:04 PM PARAMEDIC SUPERVISOR Jenna Fountain MD SEND OUTS [facility] [address] [place] [address], [place] * SHOP ASSISTANT PROBE - GC CHLAMYDIA DNA PCR [[id number]] (02/19/2024 4:04 PM PARAMEDIC SUPERVISOR) CHLAMYDIA PROBE Negative 4:06 AM PARAMEDIC SUPERVISOR [facility] N GONORRHOEAE PROBE Negative 02/20/2024 4:06 AM PARAMEDIC SUPERVISOR [facility] Other URINE SPECIMEN / Unknown Non-Blood / Unknown 02/19/2024 4:04 PM PARAMEDIC SUPERVISOR 02/19/2024 4:04 PM PARAMEDIC SUPERVISOR Jenna Fountain MD MICROBIOLOGY [facility] [address] [place] [address], [place] * TYPE AND SCREEN (02/19/2024 4:04 PM PARAMEDIC SUPERVISOR) ABORH A Rh Positive 02/19/2024 11:33 PM PARAMEDIC SUPERVISOR [facility] BLOOD BANK ANTIBODY SCREEN Negative Negative 02/19/2024 11:33 PM PARAMEDIC SUPERVISOR [facility] SPECIMEN EXPIRATION DATE/TIME 02/22/24 23:59 02/19/2024 11:33 PM PARAMEDIC SUPERVISOR [facility] Blood BLOOD SPECIMEN / Unknown [facility] / Unknown 02/19/2024 4:04 PM PARAMEDIC SUPERVISOR 02/19/2024 4:04 PM PARAMEDIC SUPERVISOR Jenna Fountain MD BLOOD BANK Performing Organization Address City/[facility]/ZIP Co de Phone Number [facility] [address] [place] [address], [place] [phone] * (ABNORMAL) SEDIMENTATION RATE (01/28/2024 10:38 AM CDT) SED RATE BY MODIFIED WESTERGREN 34(H) < OR = 20 mm/h [facility] Blood BLOOD SPECIMEN / Unknown 01/28/2024 10:38 AM CDT 01/28/2024 10:39 AM CDT Britt PARKER HEMATOLOGY [facility] [address] [place] [address], [place] [phone] [facility] [address] [facility] [place] [address] * (ABNORMAL) C-REACTIVE PROTEIN (01/28/2024 10:38 AM CDT) [facility] C-REACTIVE PROTEIN 34.4(H) <8.0 mg/L [facility] Blood BLOOD SPECIMEN / Unknown 01/28/2024 10:38 AM CDT 01/28/2024 10:39 AM CDT Britt PARKER CHEMISTRY [facility] [address] [place] [address], [facility] [address] [place] [address] * (ABNORMAL) CBC AND DIFFERENTIAL (01/28/2024 10:38 AM CDT) [facility] WHITE BLOOD CELL COUNT 7.2 3.8 - 10.8 Thousand/u L [facility] RED BLOOD CELL COUNT 5.00 3.80 - 5.10 Million/uL [facility] HEMOGLOBIN 12.8 11.7 - 15.5 g/dL [facility] HEMATOCRIT 39.7 35.0 - 45.0 % [facility] MCV 79.4(L) 80.0 - 100.0 fL [facility] MCH 25.6(L) 27.0 - 33.0 pg [facility] MCHC 32.2 32.0 - 36.0 g/dL [facility] Comment: For adults, a slight decrease in the calculated MCHC value (in the range of 30 to 32 g/dL) is most likely not clinically significant; however, it should be interpreted with caution in correlation with other red cell parameters and the patient's clinical condition. RDW 15.0 11.0 - 15.0 % [facility] PLATELET COUNT 296 140 - 400 Thousand/u L [facility] MPV 11.7 7.5 - 12.5 fL [facility] ABSOLUTE NEUTROPHILS 5,335 1,500 - 7,800 cells/uL [facility] ABSOLUTE LYMPHOCYTES 1,390 850 - 3,900 cells/uL [facility] ABSOLUTE MONOCYTES 418 200 - 950 cells/uL [facility] ABSOLUTE EOSINOPHILS 29 15 - 500 cells/uL [facility] ABSOLUTE BASOPHILS 29 0 - 200 cells/uL [facility] NEUTROPHILS 74.1 % [facility] LYMPHOCYTES 19.3 % [facility] MONOCYTES 5.8 % [facility] EOSINOPHILS 0.4 % [facility] BASOPHILS 0.4 % [facility] Blood BLOOD SPECIMEN / Unknown 01/28/2024 10:38 AM CDT 01/28/2024 10:39 AM CDT Britt PARKER HEMATOLOGY Performing Organization Address City/[facility]/ZIP Co de Phone Number [facility] [address] [place] [address], [place] [phone] [facility] [address] [facility] [place] [address] * LIPASE (01/28/2024 10:38 AM CDT) Pathologist [facility] LIPASE 9 7 - 60 U/L [facility] Blood BLOOD SPECIMEN / Unknown 01/28/2024 10:38 AM CDT 01/28/2024 10:39 AM CDT Britt PARKER CHEMISTRY [facility] [address] [place] [address], [place] [phone] [facility] [address] [facility] [place] [address] * (ABNORMAL) COMP METABOLIC PANEL (01/28/2024 10:38 AM CDT) GLUCOSE 93 65 - 99 mg/dL [facility] Comment: Fasting reference interval UREA NITROGEN (BUN) 9 7 - 25 mg/dL [facility] CREATININE 0.70 0.50 - 0.97 mg/dL [facility] EGFR 116 > OR = 60 mL/min/1. 73m2 [facility] BUN/CREATININE RATIO SEE NOTE: 6 - 22 (calc) [facility] Comment: Not Reported: BUN and Creatinine are within reference range. SODIUM 135 135 - 146 mmol/L [facility] POTASSIUM 4.3 3.5 - 5.3 mmol/L [facility] CHLORIDE 101 98 - 110 mmol/L [facility] CARBON DIOXIDE 28 20 - 32 mmol/L [facility] CALCIUM 9.2 8.6 - 10.2 mg/dL [facility] PROTEIN, TOTAL 7.0 6.1 - 8.1 g/dL [facility] ALBUMIN 3.7 3.6 - 5.1 g/dL [facility] GLOBULIN 3.3 1.9 - 3.7 g/dL (calc) [facility] ALBUMIN/GLOBULIN RATIO 1.1 1.0 - 2.5 (calc) [facility] BILIRUBIN, TOTAL 0.5 0.2 - 1.2 mg/dL [facility] ALKALINE PHOSPHATASE 102 31 - 125 U/L [facility] AST 25 10 - 30 U/L [facility] ALT 33(H) 6 - 29 U/L [facility] Blood BLOOD SPECIMEN / Unknown 01/28/2024 10:38 AM CDT 01/28/2024 10:39 AM CDT Britt PARKER CHEMISTRY [facility] [address] [place] [address], [facility] [address] [place] [address] * (ABNORMAL) CBC WITH AUTO DIFFERENTIAL (01/04/2024 9:57 AM CDT) Only the most recent of2 resultswithin the time period is included. [facility] WHITE BLOOD CELL COUNT 7.6 3.8 - 10.8 Thousand/u L [facility] RED BLOOD CELL COUNT 4.80 3.80 - 5.10 Million/uL [facility] HEMOGLOBIN 12.2 11.7 - 15.5 g/dL [facility] HEMATOCRIT 38.6 35.0 - 45.0 % [facility] MCV 80.4 80.0 - 100.0 fL [facility] MCH 25.4(L) 27.0 - 33.0 pg [facility] MCHC 31.6(L) 32.0 - 36.0 g/dL [facility] Comment: For adults, a slight decrease in the calculated MCHC value (in the range of 30 to 32 g/dL) is most likely not clinically significant; however, it should be interpreted with caution in correlation with other red cell parameters and the patient's clinical condition. RDW 14.7 11.0 - 15.0 % [facility] PLATELET COUNT 289 140 - 400 Thousand/u L [facility] MPV 12.4 7.5 - 12.5 fL [facility] ABSOLUTE NEUTROPHILS 5,472 1,500 - 7,800 cells/uL [facility] ABSOLUTE LYMPHOCYTES 1,626 850 - 3,900 cells/uL [facility] ABSOLUTE MONOCYTES 403 200 - 950 cells/uL [facility] ABSOLUTE EOSINOPHILS 68 15 - 500 cells/uL [facility] ABSOLUTE BASOPHILS 30 0 - 200 cells/uL [facility] NEUTROPHILS 72 % [facility] LYMPHOCYTES 21.4 % [facility] MONOCYTES 5.3 % [facility] EOSINOPHILS 0.9 % [facility] BASOPHILS 0.4 % [facility] 01/04/2024 9:57 AM CDT 01/04/2024 9:58 AM CDT Renetta PARKER HEMATOLOGY Performing Organization Address [facility]/ZIP Co de Phone Number [facility] [address] [facility] [place] [address], [place] [phone] [facility] [address] [facility] [place] [address] * (ABNORMAL) IRON PLUS IRON BINDING CAP (01/04/2024 9:57 AM CDT) IRON, TOTAL 35(L) 40 - 190 mcg/dL [facility] IRON BINDING CAPACITY 368 250 - 450 mcg/dL (calc) [facility] % SATURATION 10(L) 16 - 45 % (calc) [facility] Blood BLOOD SPECIMEN / Unknown 01/04/2024 9:57 AM CDT 01/04/2024 9:58 AM CDT Renetta PARKER CHEMISTRY Performing Organization Address [facility]/ZIP Co de Phone Number [facility] [address] [place] [address], [place] [phone] [facility] [address] [facility] [place] [address] * (ABNORMAL) FERRITIN (01/04/2024 9:57 AM CDT) FERRITIN 11(L) 16 - 154 ng/mL [facility] Blood BLOOD SPECIMEN / Unknown 01/04/2024 9:57 AM CDT 01/04/2024 9:58 AM CDT Renetta PARKER CHEMISTRY [facility] [address] [facility] [place] [address], [place] [phone] [facility] [address] [facility] [place] [address] * STAT Basic Metabolic Panel BMP (12/21/2023 2:22 PM CDT) SODIUM 138 136 - 145 mmol/L 12/21/2023 3:[address] [facility] POTASSIUM 4.1 3.5 - 5.1 mmol/L 12/21/2023 3:[address] [facility] CHLORIDE 100 98 - 107 mmol/L 12/21/2023 3:[address] [facility] CO2,TOTAL 28 22 - 29 mmol/L 12/21/2023 3:[address] [facility] ANION GAP 10 5 - 18 12/21/2023 3:[address] [facility] GLUCOSE 93 70 - 99 mg/dL 12/21/2023 3:[address] [facility] CALCIUM 9.7 8.6 - 10.0 mg/dL 12/21/2023 3:[address] [facility] BUN 15 6 - 20 mg/dL 12/21/2023 3:[address] [facility] CREATININE 0.74 0.50 - 0.90 mg/dL 12/21/2023 3:[address] [facility] BUN/CREAT RATIO 20 10 - 20 4 3:[address] [facility] eGFR >90 >90 mL/min/1.7 3m2 12/21/2023 3:[address] [facility] Comment:As of 2021, eG FR is calculated by the CKD-EPI creatinine equation without race adjustment. eGFR can be influenced by muscle mass, exercise, and diet. The reported eGFR is an estimation only and is only applicable if the renal function is stable. Blood BLOOD SPECIMEN / Unknown Non-Lab Venipuncture / Unknown 12/21/2023 2:22 PM CDT 12/21/2023 2:22 PM CDT Aundrea Mccracken NP CHEMISTRY [facility] [address] [place] [address] * TRICHOMONAS, LISA, AND BACTERIAL VAGINOSIS BY NALLELY (12/21/2023 2:08 PM CDT) Pathologist [facility] SURESWAB(R) ADV BACTERIAL VAGINOSIS (BV), TMA NEGATIVE NEGATIVE [facility] LISA SPECIES NOT DETECTED NOT DETECTED [facility] LISA GLABRATA NOT DETECTED NOT DETECTED [facility] Comment: Lisa species C. albicans, C. tropicalis, C. parapsilosis, and/or C. dubliniensis can be detected, but not differentiated, in the Lisa spp. result. TRICHOMONAS VAGINALIS (TV), TMA NOT DETECTED NOT DETECTED [facility] Other VAGINAL SWAB / Unknown 12/21/2023 2:08 PM CDT 12/22/2023 2:41 AM CDT Narrative [facility] [employer] [facility] - 12/22/2023 11:11 AM CDT FASTING:NO FASTING: NO Aundrea Mccracken NP [employer] [facility] [address] [place] [address], [facility] [address] [place] [phone] * STAT Urine (12/21/2023 12:53 PM CDT) Pathologist [facility] ,URIN E Negative Negative 12/21/2023 1:11 PM CDT [facility] Urine URINE SPECIMEN / Unknown Non-Blood / Unknown 12/21/2023 12:53 PM CDT 12/21/2023 12:53 PM CDT Aundrea Mccracken NP URINE [facility] [address] [place] [phone] * SHOP ASSISTANT THIN PREP PAP SCREEN IMAGED (08/13/2020 9:00 AM CDT) [facility] Case Report Gynecologic Cytology Report Case: [id number] Authorizing Provider: Bob Troncoso DO Collected: 08/13/2020 0900 Ordering Location: [facility] Received: 08/13/2020 0913 Clinic First Screen: Baccam Minie Rescreen: Ivana Mora Specimen: SHOP ASSISTANT ThinPrep Vial Screening, Cervical 08/24/2020 1:03 PM CDT [facility] [employer] LABORATORY-C ENTRAL LABORATORY INTERPRETATION/ RESULT NEGATIVE FOR INTRAEPITHELIAL LESION OR MALIGNANCY (NIL) (none) 08/24/2020 1:03 PM CDT [facility] [employer] [facility]- ENTRAL LABORATORY IMEN ADEQUACY Satisfactory for evaluation No endocervical component seen 08/24/2020 1:03 PM CDT [facility] [employer] [facility]- ENTRAL LABORATORY HPV REQUEST HPV and PAP 08/24/2020 1:03 PM CDT [facility] [employer] [facility] ENTRAL LABORATORY Date of LMP Dec 2019 08/24/2020 1:03 PM CDT [facility] [employer] [facility] ENTRAL LABORATORY Last Pap Date 02/24/18 08/24/2020 1:03 PM CDT [facility] [employer] [facility] ENTRAL LABORATORY Last Pap Result NIL 1:03 PM CDT [facility] [employer] [facility]- ENTRAL LABORATORY Abnormal Pap or Ingalls Bx in last 5 years No 08/24/2020 1:03 PM CDT [facility] ENTRAL LABORATORY Menstrual Status Irregular Periods 08/24/2020 1:03 PM CDT [facility] ENTRAL LABORATORY Ing[place] Bx Done Today No 08/24/2020 1:03 PM CDT [facility] ENTRAL LABORATORY Additional Information None given 08/24/2020 1:03 PM CDT [facility] [employer] [facility]- ENTRAL LABORATORY Comment: Cytology is screened at [facility], Central Laboratory - [address], [place] [address] and [facility] - [address], [place] [address] and [facility] - [address] [place] [address] Interpreted at [facility], Central Laboratory - [address], [place] [address] Automated Review Successful 08/24/2020 1:03 PM CDT [facility] ENTRAL LABORATORY Comment:Specimen processed s uccessfully by automated eap clinician device, ThinPrep Imaging System, [employer] ANCILLARY TESTING SHOP ASSISTANT HPV Ordered, Please see separate report 08/24/2020 1:03 PM CDT [facility]TR[facility]J LABORATORY Note The pap test is a screening technique, not a diagnostic procedure. It is used primarily to screen for squamous cancers and precursor lesions. Published studies have shown that it is subject to both false negative and false positive results. The pap test should not be used as the sole means to diagnose or exclude pre-malignant and malignant lesions. 08/24/2020 1:03 PM CDT [facility] LABORATORY Other (Cervical) Non-Blood / Unknown 08/13/2020 9:00 AM CDT 08/13/2020 9:13 AM CDT Bob Troncoso DO PATHOLOGY/CYTOLOG Y [facility] LABOR[facility] [address] [place] [address], from Last 3 Months or Most Recently Relevant to Health Maintenance Advance Directives * Full Code (Latest Code Status on File) Date Activated Date Inactivated Comments 02/03/2022 9:06 AM 02/03/2022 2:28 PM Question Answer Comments Code Status Discussion: Discussed * Full Code Date Activated Date Inactivated Comments 08/13/2019 11:49 AM 08/14/2019 1:38 PM * Full Code Date Activated Date Inactivated Comments 08/10/2019 9:19 PM 08/13/2019 11:14 AM Question Answer Comments Code Status Discussion: Not Discussed * Full Code Date Activated Date Inactivated Comments 08/10/2019 9:19 PM 08/10/2019 9:19 PM Question Answer Comments Code Status Discussion: Not Discussed Care Teams Superintendent Compressor Stations Relationship Specialty Start Date End Date Renetta Cross PA [facility] [place] [address] PCP - General Physician Maintenance Superintendent 01/06/24 Jonelle Morris MD [address] [facility] [place] [address] Hematology Hematology and Oncology 11/25/21 Luz Macias, REED MAN [address] [place] [address] Nurse Practitioner Hematology and Oncology 11/25/21
[2024-03-01 21:55] LABS: Bacterial Vaginosis* Negative (Negative); Candida glab/krus NOT DETECTED (No Detected); Candida species NOT DETECTED (No Detected); Trichomonas vaginalis NOT DETECTED (No Detected)
== END 2024-03-01 17:28 | disposition home or self-care (01) ==
LOC: NFLDREF 18:08
PROVIDERS: PCP Physician Assistant; Visit Provider Advanced Practice Midwife
DX: N89.8 Other specified noninflammatory disorders of vagina (principal)
CPT/HCPCS: 81513; 87086; 87481; 87661

== ENCOUNTER 2024-03-28 08:48 | Outpatient (CLI) | payer OTHER, SELFPAY | END 2024-03-28 08:49 | disposition home or self-care (01) | PROVIDERS: PCP Physician Assistant; Visit Provider Obstetrics & Gynecology | DX: E03.9 Hypothyroidism, unspecified (principal) | CPT/HCPCS: 84439; 84443 ==

== ENCOUNTER 2024-04-18 14:31 | Outpatient (CLI) | payer OTHER, SELFPAY | END 2024-04-18 14:32 | disposition home or self-care (01) | PROVIDERS: PCP Physician Assistant; Visit Provider Obstetrics & Gynecology | DX: O99.282 Endocrine, nutritional and metabolic diseases complicating pregnancy, second trimester (principal); O10.912 Unspecified pre-existing hypertension complicating pregnancy, second trimester; E03.9 Hypothyroidism, unspecified; Z3A.20 20 weeks gestation of pregnancy | CPT/HCPCS: 82565; 82570; 84156; 84443; 84450; 84460; 84520; 84550 ==

== ENCOUNTER 2024-04-25 09:00 | Outpatient (CLI) | payer OTHER, SELFPAY | END 2024-04-25 09:01 | disposition home or self-care (01) | LOC: NFLDREF 05-02 01:39 | PROVIDERS: PCP Physician Assistant; Referring Provider Physician Assistant; Visit Provider Obstetrics & Gynecology | DX: O10.919 Unspecified pre-existing hypertension complicating pregnancy, unspecified trimester (principal) | CPT/HCPCS: 82570; 84156 ==

== ENCOUNTER 2024-05-24 10:42 | Outpatient (CLI) | payer OTHER, SELFPAY | END 2024-05-24 10:43 | disposition home or self-care (01) | LOC: NFLDREF 10:42 | PROVIDERS: PCP Physician Assistant; Visit Provider Obstetrics & Gynecology | DX: Z34.82 Encounter for supervision of other normal pregnancy, second trimester (principal) | CPT/HCPCS: 86592 ==

== ENCOUNTER 2024-06-13 08:50 | Outpatient (CLI) | payer OTHER, SELFPAY | END 2024-06-13 08:51 | disposition home or self-care (01) | LOC: NFLDREF 10:50 | PROVIDERS: PCP Physician Assistant; Referring Provider Physician Assistant; Visit Provider Obstetrics & Gynecology | DX: O10.913 Unspecified pre-existing hypertension complicating pregnancy, third trimester (principal); O99.013 Anemia complicating pregnancy, third trimester; O26.893 Other specified pregnancy related conditions, third trimester; R35.0 Frequency of micturition; Z3A.28 28 weeks gestation of pregnancy | CPT/HCPCS: 82728; 82951; 82952; 87086 ==

== ENCOUNTER 2024-07-01 14:30 | Outpatient (RCR) | payer OTHER, SELFPAY ==
--- NOTE | 2024-06-20 10:04 | ONC.NURNOTE ---
Diagnosis: Iron Deficiency Anemia in
--- NOTE | 2024-06-20 13:04 | URNOTE ---
Request received for authorization for Iron Sucrose (Venofer) ([id number]). Prior authorization is not required as services are based on medical necessity per [employer] on behalf of active [employer] plan.
[2024-06-21 11:53] VITALS: BP 136/79; PULSE 90; RESP 18; TEMP 36.2; O2SAT 97
[2024-06-21] MEDS: IRON SUCROSE COMPLEX 200 MG in 0.9 % SODIUM CHLORIDE 100 ml 100 ML 440 MG IVPB (12:21)
[2024-06-21 12:42] VITALS: BP 128/72; PULSE 93; RESP 16; O2SAT 95
[2024-06-24 14:39] VITALS: BP 125/85; PULSE 100; RESP 18; TEMP 36.5; O2SAT 96
[2024-06-24] MEDS: IRON SUCROSE COMPLEX 200 MG in 0.9 % SODIUM CHLORIDE 100 ml 100 ML 440 MG IVPB (14:57)
[2024-06-24 15:15] VITALS: BP 117/74; PULSE 94; RESP 18; O2SAT 98
[2024-06-24 15:45] VITALS: BP 127/79; PULSE 101; RESP 18; O2SAT 97
[2024-06-27 11:14] VITALS: BP 105/68; PULSE 92; RESP 16; TEMP 36.6; O2SAT 94
[2024-06-27] MEDS: IRON SUCROSE COMPLEX 200 MG in 0.9 % SODIUM CHLORIDE 100 ml 100 ML 440 MG IVPB (11:29)
[2024-06-27 11:44] VITALS: BP 116/84; PULSE 89; RESP 16; TEMP 36.3; O2SAT 96
[2024-06-27 12:16] VITALS: BP 134/76; PULSE 94; RESP 18; O2SAT 96
[2024-06-29 08:10] VITALS: BP 129/81; PULSE 88; RESP 18; TEMP 36.1; O2SAT 98
[2024-06-29] MEDS: IRON SUCROSE COMPLEX 200 MG in 0.9 % SODIUM CHLORIDE 100 ml 100 ML 440 MG IVPB (08:29)
[2024-06-29 08:51] VITALS: BP 122/77; PULSE 94; RESP 16; O2SAT 97
[2024-07-01 15:25] VITALS: BP 127/88; PULSE 97; RESP 20; TEMP 36.3; O2SAT 97
[2024-07-01] MEDS: IRON SUCROSE COMPLEX 200 MG in 0.9 % SODIUM CHLORIDE 100 ml 100 ML 440 MG IVPB (15:41)
== END 2024-12-18 23:59 | disposition home or self-care (01) ==
LOC: CCIC 14:30
PROVIDERS: PCP Physician Assistant; Referring Provider Physician Assistant; Visit Provider Obstetrics & Gynecology
DX: O99.013 Anemia complicating pregnancy, third trimester (principal); D50.9 Iron deficiency anemia, unspecified
CPT/HCPCS: 96365; 96374; J1756

== ENCOUNTER 2024-07-11 09:59 | Outpatient (CLI) | payer OTHER, SELFPAY ==
--- NOTE | 2024-07-11 10:15 | CRLHL7_ITS ---
For Patients: As a result of the Century Cures Act, medical imaging exams and procedure reports are released immediately into your electronic medical record. You may view this report before your referring provider. If you have questions, please contact your health care provider. ULTRASOUND OB PELVIS BIOPHYSICAL PROFILE TECHNIQUE: Real time johnson scale imaging of the fetus was performed transabdominal. YUSEF by LMP or US: 09/01/2024 GA: 32w, 4d. Single. COMPARISON: 06/20/2024, 06/06/2024, 05/09/2024. INDICATION: Pre-existing HTN. CERVIX: Not visualized. POSITIONING: Breech. AMNIOTIC FLUID: 26.6 cm JAMES. 7.3 cm SDP. BIOPHYSICAL PROFILE: Total score: 2. Gross body movements: 2. tone: 2. Respiratory activity: 2. Amniotic fluid: 8. (SDP N: Increase 2 x 1 cm) PLACENTA: Technique: Transabdominal. PLACENTA POSITION: Anterior. DOPPLER: heart rate: 134 bpm. IMPRESSION: 1. Biophysical profile 8/8. 2. Amniotic fluid single deepest pocket 7.3 cm. JAMES 26.6 cm. Roberto Pope M.D. Diagnostic Radiologist [email or web address] SP/Dictated by: Roberto Pope MD @ 07/11/2024 5:09:00 PM (Electronically Signed)
== END 2024-07-11 10:00 | disposition home or self-care (01) ==
LOC: US 09:59
PROVIDERS: PCP Physician Assistant; Visit Provider Obstetrics & Gynecology
DX: R79.89 Other specified abnormal findings of blood chemistry (principal); K76.0 Fatty (change of) liver, not elsewhere classified; R16.0 Hepatomegaly, not elsewhere classified
CPT/HCPCS: 76819; 82565; 82570; 84156; 84443; 84450; 84460; 84520

== ENCOUNTER 2024-07-13 11:17 | Outpatient (CLI) | payer OTHER, SELFPAY ==
--- NOTE | 2024-07-13 11:30 | CRLHL7_ITS ---
For Patients: As a result of the Century Cures Act, medical imaging exams and procedure reports are released immediately into your electronic medical record. You may view this report before your referring provider. If you have questions, please contact your health care provider. INDICATION: abnormal levels of serum enzymes COMPARISON: none TECHNIQUE: Real time johnson scale imaging and color Doppler analysis was performed of the right upper quadrant. FINDINGS: The liver is enlarged and measures 19.4 cm. Liver echotexture is coarsened and increased in echotexture without intrahepatic mass. There is a normal appearance of the hepatic IVC and proximal abdominal aorta. There is no evidence of ascites. The gallbladder is absent. The common bile duct is of normal size and measures 3 mm in diameter at the level of the bassam hepatis. The pancreas is not well visualized due to overlying bowel gas. There is no evidence of a stone or hydronephrosis within the right kidney. The right kidney measures 12.2 cm in length. IMPRESSION: Hepatomegaly with hepatic steatosis. Dictated by Roberto Pope MD @ 07/14/2024 8:09:08 PM (Electronically Signed)
== END 2024-07-13 11:18 | disposition home or self-care (01) ==
LOC: US 11:18
PROVIDERS: PCP Physician Assistant; Visit Provider Obstetrics & Gynecology
DX: R74.8 Abnormal levels of other serum enzymes (principal); K76.0 Fatty (change of) liver, not elsewhere classified
CPT/HCPCS: 76705; 80074; 82239; 82247; 82248; 84450; 84460

== ENCOUNTER 2024-07-18 10:07 | Outpatient (CLI) | payer OTHER, SELFPAY | END 2024-07-18 10:08 | disposition home or self-care (01) | LOC: NFLDREF 07-20 03:13 | PROVIDERS: PCP Physician Assistant; Referring Provider Physician Assistant; Visit Provider Obstetrics & Gynecology | DX: O10.913 Unspecified pre-existing hypertension complicating pregnancy, third trimester (principal); Z3A.33 33 weeks gestation of pregnancy | CPT/HCPCS: 82565; 82570; 84156; 84450; 84460; 84520 ==

== ENCOUNTER 2024-07-18 10:10 | Outpatient (CLI) | payer OTHER, SELFPAY ==
--- NOTE | 2024-07-18 10:15 | CRLHL7_ITS ---
For Patients: As a result of the Cures Act, medical imaging exams and procedure reports are released immediately into your electronic medical record. You may view this report before your referring provider. If you have questions, please contact your health care provider. OB ULTRASOUND BIOPHYSICAL PROFILE, 07/18/2024 CLINICAL HISTORY: Pre-existing HTN. COMPARISON: None. TECHNIQUE: Real time johnson scale imaging of the fetus was performed transabdominally. FINDINGS: YUSEF by US: 09/01/2024. GA: 33 weeks 4 days. Gestation: Single. CERVIX: Not visualized. POSITIONING: Vertex. AMNIOTIC FLUID: 25.4 cm JAMES. 8.8 cm SDP. BIOPHYSICAL PROFILE: Gross Body Movements: 2 Tone: 2 Respiratory Activity: 2 Amniotic Fluid: 2 Total Score: 8/8 PLACENTA: Technique: TA. Placenta Position: Anterior. DOPPLERS: Heart Rate: 144 bpm. IMPRESSION: 1. Normal biophysical profile score of 8/8. 2. Amniotic fluid single deepest pocket 8.8 cm. JAMES 25.4 cm. Roberto Pope M.D. Diagnostic Radiologist [email or web address] Transcribed: 1:03 pm DW/Dictated by: Roberto Pope MD @ 07/18/2024 12:55:00 PM (Electronically Signed)
== END 2024-07-18 10:11 | disposition home or self-care (01) ==
LOC: US 10:11
PROVIDERS: PCP Physician Assistant; Visit Provider Obstetrics & Gynecology
DX: O10.913 Unspecified pre-existing hypertension complicating pregnancy, third trimester (principal); Z3A.33 33 weeks gestation of pregnancy
CPT/HCPCS: 76819

== ENCOUNTER 2024-09-02 08:35 | Outpatient (CLI) | payer OTHER, SELFPAY | END 2024-09-02 08:36 | disposition home or self-care (01) | LOC: NFLDREF 11:26 | PROVIDERS: PCP Physician Assistant; Referring Provider Physician Assistant; Visit Provider Advanced Practice Midwife | DX: Z39.2 Encounter for routine postpartum follow-up (principal); E03.9 Hypothyroidism, unspecified; I10 Essential (primary) hypertension; R74.01 Elevation of levels of liver transaminase levels; E66.01 Morbid (severe) obesity due to excess calories | CPT/HCPCS: 82947; 82950; 84439; 84443 ==

== ENCOUNTER 2024-10-10 10:00 | Outpatient (CLI) | payer OTHER, SELFPAY | END 2024-10-10 10:01 | disposition home or self-care (01) | LOC: NFLDREF 14:59 | PROVIDERS: PCP Physician Assistant; Referring Provider Physician Assistant; Visit Provider Advanced Practice Midwife | DX: E03.9 Hypothyroidism, unspecified (principal) | CPT/HCPCS: 84439; 84443 ==